=== PATIENT | male | born 1930 | race Caucasian/White ===

== ENCOUNTER 2017-01-15 09:19 | Outpatient (CLI) | payer MEDICARE ==
[2017-01-15 09:48] LABS: Hemoglobin A1c 8.6 % (4.0-6.0)
[2017-01-15 11:14] LABS: ALT (SGPT) 15 U/L (0-55); AST (SGOT) 16 U/L (5-34); Albumin 3.5 g/dL (3.4-4.8); Alkaline Phosphatase 112 U/L (40-150); Anion Gap 13 mmol/L (10-20); BUN (Urea Nitrogen) 17 mg/dL (8.4-25.7); Bilirubin, Direct 0.3 mg/dL (0.1-0.3); Bilirubin, Total 0.5 mg/dL (0.2-1.2); Calc. Creatinine Clearance 0 mL/min (70-130); Carbon Dioxide 25 mmol/L (23-31); Cardiac Risk 3.8 (Less than 4.5); Chloride 106 mmol/L (98-107); Cholesterol 117 mg/dL (< 200 Desired); Estimated GFR-MDRD 54; Glucose 101 mg/dL (83-110); HDL Cholesterol 31 mg/dL (>60 Neg Risk); LDL Cholesterol, Calculated 73 mg/dL; Potassium 4.3 mmol/L (3.5-5.1); Protein, Total 6.4 g/dL (5.8-8.1); Sodium 140 mmol/L (136-145); Triglycerides 63 mg/dL (Less than 150)
== END 2017-01-15 09:20 ==
LOC: MADLABBHPM 09:19
PROVIDERS: ATTEND Family Medicine
DX: E11.9 Type 2 diabetes mellitus without complications (principal); M10.9 Gout, unspecified
CPT/HCPCS: 36415; 80048; 80061; 80076; 83036; 84550

== ENCOUNTER 2017-04-19 09:34 | Outpatient (CLI) | payer MEDICARE ==
[2017-04-19 10:30] LABS: ALT (SGPT) 13 U/L (8-55); AST (SGOT) 14 U/L (5-34); Albumin 3.2 g/dL (3.4-4.8); Alkaline Phosphatase 101 U/L (40-150); Anion Gap 14 mmol/L (10-20); BUN (Urea Nitrogen) 16 mg/dL (8.4-25.7); Bilirubin, Direct 0.2 mg/dL (0.1-0.3); Bilirubin, Total 0.4 mg/dL (0.2-1.2); Calc. Creatinine Clearance 0 mL/min (70-130); Calcium 8.8 mg/dL (7.8-10.44); Carbon Dioxide 23 mmol/L (23-31); Cardiac Risk 4.3 (Less than 4.5); Chloride 101 mmol/L (98-107); Cholesterol 112 mg/dl (< 200 Desired); Estimated GFR-MDRD 54; Glucose 158 mg/dL (83-110); HDL Cholesterol 26 mg/dL (>60 Neg Risk); LDL Cholesterol, Calculated 72 mg/dL; Potassium 4.4 mmol/L (3.5-5.1); Protein, Total 7.5 g/dL (5.8-8.1); Sodium 134 mmol/L (136-145); Triglycerides 70 mg/dL (Less than 150)
== END 2017-04-19 09:35 ==
LOC: MADLABBHPM 09:34
PROVIDERS: ATTEND Family Medicine
DX: E11.9 Type 2 diabetes mellitus without complications (principal)
CPT/HCPCS: 36415; 80048; 80061; 80076; 83036

== ENCOUNTER 2017-07-05 10:23 | Outpatient (CLI) | payer MEDICARE ==
[2017-07-05 10:40] LABS: #Basophils 0.1 thou/uL (0.0-0.2); #Eosinphils 1.4 thou/uL (0.0-0.7); #Lymphocytes 2.4 thou/uL (1.20-3.40); #Neutrophils 7.6 thou/uL (1.40-6.50); %Basophils 0.7 % (0.0-1.0); %Eosinophils 11.2 % (0.0-10.0); %Lymphocytes 19.2 % (21.0-51.0); %Neutrophils 60.9 % (42.0-75.0); Mean Corpuscular HGB CONC 31.2 g/dL (32.0-36.0); Mean Corpuscular Hemoglobin 28.7 pg (27.0-31.0); Mean Platelet Volume 6.2 fL (7.4-10.4); Platelet Count 242 thou/uL (130-400); RBC Distribution Width 13.9 % (11.5-14.5); Red Blood Cell (RBC) Count 5.21 mill/uL (4.70-6.10); White Blood Cell (WBC) Count 12.4 thou/uL (4.8-10.8)
[2017-07-05 10:48] LABS: Hemoglobin A1c 8.4 % (4.0-6.0)
[2017-07-05 11:42] LABS: ALT (SGPT) 11 U/L (8-55); AST (SGOT) 15 U/L (5-34); Albumin 3.5 g/dL (3.4-4.8); Alkaline Phosphatase 123 U/L (40-150); Anion Gap 12 mmol/L (10-20); BUN (Urea Nitrogen) 17 mg/dL (8.4-25.7); Bilirubin, Direct 0.3 mg/dL (0.1-0.3); Bilirubin, Total 0.7 mg/dL (0.2-1.2); Calc. Creatinine Clearance 0 mL/min (70-130); Carbon Dioxide 25 mmol/L (23-31); Cardiac Risk 3.8 (Less than 4.5); Chloride 106 mmol/L (98-107); Cholesterol 114 mg/dl (< 200 Desired); Estimated GFR-MDRD 53; Glucose 107 mg/dL (83-110); HDL Cholesterol 30 mg/dL (>60 Neg Risk); LDL Cholesterol, Calculated 66 mg/dL; Potassium 4.1 mmol/L (3.5-5.1); Protein, Total 6.6 g/dL (5.8-8.1); Sodium 139 mmol/L (136-145); Triglycerides 89 mg/dL (Less than 150); Uric Acid 5.4 mg/dL (3.5-7.2)
== END 2017-07-05 10:24 | disposition home or self-care (01) ==
LOC: MADLABBHPM 10:23
PROVIDERS: ATTEND Family Medicine
DX: E11.9 Type 2 diabetes mellitus without complications (principal); M10.9 Gout, unspecified
CPT/HCPCS: 36415; 80048; 80061; 80076; 83036; 84550; 85025

== ENCOUNTER 2019-08-18 10:36 | Outpatient (CLI) | payer MEDICARE ==
[2019-08-18 11:08] LABS: ALT (SGPT) 13 U/L (8-55); AST (SGOT) 14 U/L (5-34); Albumin 3.2 g/dL (3.4-4.8); Alkaline Phosphatase 107 U/L (40-110); Anion Gap 14 mmol/L (10-20); BUN (Urea Nitrogen) 13 mg/dL (8.4-25.7); Bilirubin, Direct 0.2 mg/dL (0.1-0.3); Bilirubin, Total 0.5 mg/dL (0.2-1.2); Calc. Creatinine Clearance 0 mL/min (70-130); Calcium 8.3 mg/dL (7.8-10.44); Carbon Dioxide 24 mmol/L (23-31); Cardiac Risk 3.9 (Less than 4.5); Chloride 109 mmol/L (98-107); Cholesterol 104 mg/dl (< 200 Desired); Estimated GFR-MDRD 68; Glucose 87 mg/dL (83-110); HDL Cholesterol 27 mg/dL (>60 Neg Risk); LDL Cholesterol, Calculated 65 mg/dL; Potassium 3.9 mmol/L (3.5-5.1); Protein, Total 6.1 g/dL (5.8-8.1); Sodium 143 mmol/L (136-145); Triglycerides 59 mg/dL (Less than 150); Uric Acid 4.9 mg/dL (3.5-7.2)
[2019-08-18 11:19] LABS: #Basophils 0.1 thou/uL (0.0-0.2); #Eosinphils 0.7 thou/uL (0.0-0.7); #Lymphocytes 1.7 thou/uL (1.20-3.40); #Monocytes 0.6 thou/uL (0.11-0.59); #Neutrophils 4.8 thou/uL (1.40-6.50); %Basophils 1.1 % (0.0-1.0); %Eosinophils 8.7 % (0.0-10.0); %Lymphocytes 21.9 % (21.0-51.0); %Monocytes 7.5 % (0.0-10.0); %Neutrophils 60.9 % (42.0-75.0); Hemoglobin 13.8 g/dL (14.0-18.0); Manual Diff?? NO; Mean Corpuscular HGB CONC 29.6 g/dL (32.0-36.0); Mean Corpuscular Hemoglobin 28.4 pg (27.0-31.0); Mean Platelet Volume 6.2 fL (7.4-10.4); Platelet Count 271 thou/uL (130-400); RBC Distribution Width 13.5 % (11.5-14.5); Red Blood Cell (RBC) Count 4.85 mill/uL (4.70-6.10); White Blood Cell (WBC) Count 7.8 thou/uL (4.8-10.8)
[2019-08-18 11:20] LABS: MDiff Complete? YES
[2019-08-18 16:55] LABS: Hemoglobin A1c 7.7 % (4.0-6.0)
[2019-08-18 17:21] LABS: Creatinine, Urine 191.58 mg/dL (63-166); Microalbumin/Creat Ratio 26.1 mg/g (Less than 30)
== END 2019-08-18 10:37 | disposition home or self-care (01) ==
LOC: MADLABBHPM 10:36
PROVIDERS: ATTEND Family Medicine
DX: E11.22 Type 2 diabetes mellitus with diabetic chronic kidney disease (principal); N18.9 Chronic kidney disease, unspecified; E78.00 Pure hypercholesterolemia, unspecified; M10.9 Gout, unspecified
CPT/HCPCS: 36415; 80048; 80061; 80076; 82043; 83036; 84443; 84550; 85025

== ENCOUNTER 2021-01-20 15:38 | Outpatient (CLI) | payer MEDICARE ==
[2021-01-20 15:58] LABS: ALT (SGPT) 19 U/L (8-55); AST (SGOT) 19 U/L (5-34); Albumin 3.5 g/dL (3.4-4.8); Alkaline Phosphatase 112 U/L (40-110); Anion Gap 13 mmol/L (10-20); BUN (Urea Nitrogen) 20 mg/dL (8.4-25.7); Bilirubin, Total 0.5 mg/dL (0.2-1.2); Calc. Creatinine Clearance 0 mL/min (70-130); Calcium 8.6 mg/dL (7.8-10.44); Carbon Dioxide 27 mmol/L (23-31); Cardiac Risk 3.5 (Less than 4.5); Chloride 105 mmol/L (98-107); Cholesterol 115 mg/dl (< 200 Desired); Globulin 2.7 g/dL (2.4-3.5); Glucose 113 mg/dL (83-110); HDL Cholesterol 33 mg/dL (>60 Neg Risk); LDL Cholesterol, Calculated 69 mg/dL; Potassium 4.3 mmol/L (3.5-5.1); Protein, Total 6.2 g/dL (5.8-8.1); Sodium 141 mmol/L (136-145); Triglycerides 64 mg/dL (Less than 150)
== END 2021-01-20 15:39 | disposition home or self-care (01) ==
LOC: MADLAB 15:38
PROVIDERS: ATTEND Family Medicine
DX: I10 Essential (primary) hypertension (principal); E11.9 Type 2 diabetes mellitus without complications
CPT/HCPCS: 36415; 80053; 80061; 83036

== ENCOUNTER 2021-01-23 11:49 | Emergency (ER) | payer MEDICARE ==
[2021-01-23] MEDS ORDERED: Sodium Chloride 0.9% 1,000 ML ONE ×2 (12:36→13:46)
[2021-01-23 13:21] LABS: Band 5 % (5-11); Giant Platelets SLIGHT; Hemoglobin 15.5 g/dL (14.0-18.0); Large Platelets SLIGHT; Lymphocytes 2 % (21-51); MDiff Complete? YES; Mean Corpuscular HGB CONC 32.1 g/dL (32.0-36.0); Mean Corpuscular Hemoglobin 30.4 pg (27.0-31.0); Mean Corpuscular Volume 94.6 fL (78.0-98.0); Mean Platelet Volume 7.2 fL (7.4-10.4); Monocytes 2 % (0-10); Neutrophil 89 % (42-75); Platelet Count 200 thou/uL (130-400); Platelet Morphology Comment Appears Adequate; Poikilocytosis SLIGHT = 6-15 cells (100X) (0-5/hpf); RBC Distribution Width 13.4 % (11.5-14.5); Reactive Lymphocytes 2 % (0-10); Red Blood Cell (RBC) Count 5.09 mill/uL (4.70-6.10); White Blood Cell (WBC) Count 20.7 thou/uL (4.8-10.8)
[2021-01-23 13:27] LABS: ALT (SGPT) 23 U/L (8-55); AST (SGOT) 23 U/L (5-34); Albumin 3.7 g/dL (3.4-4.8); Alkaline Phosphatase 122 U/L (40-110); Anion Gap 17 mmol/L (10-20); BUN (Urea Nitrogen) 23 mg/dL (8.4-25.7); Bilirubin, Total 0.7 mg/dL (0.2-1.2); Calc. Creatinine Clearance 0 mL/min (70-130); Carbon Dioxide 22 mmol/L (23-31); Chloride 105 mmol/L (98-107); Globulin 2.8 g/dL (2.4-3.5); Glucose 209 mg/dL (83-110); Protein, Total 6.5 g/dL (5.8-8.1); Sodium 140 mmol/L (136-145)
[2021-01-23 13:35] LABS: PTT 33.8 sec (22.9-36.1); Prothrombin Time 12.9 sec (12.0-14.7)
[2021-01-23] MEDS ORDERED: Morphine 2 MG/ML VIAL ONE ×2 (13:46→14:56)
[2021-01-23] MEDS ORDERED: Cefepime 2 GM VIAL ONE (13:46)
[2021-01-23] MEDS ORDERED: Sodium Chloride 0.9% 100 ML ONE (13:46)
[2021-01-23 13:52] LABS: Bilirubin Negative (Negative); Blood, Urine Trace (Negative); Clarity Clear (Clear); Glucose, Urine (Dipstick) Negative (Negative); Ketone, Urine Negative (Negative); Leukocyte Negative (Negative); Nitrite Negative (Negative); Protein, Urine (Dipstick) Trace mg/dL (Neg-Trace); Specific Gravity, Urine 1.025 (1.005-1.030); Urobilinogen 0.2 mg/dL (Less than 2)
[2021-01-23 14:00] LABS: Bacteria/HPF Rare-Few HPF (None Seen); RBC/HPF 0-3 HPF (0-3); WBC/HPF 0-3 HPF (0-3)
[2021-01-23 14:15] LABS: CK (CPK) 101 U/L (30-200); CRP (Inflammatory) Less than 0.50 mg/dL (= or < 0.5)
== END 2021-01-23 15:04 | disposition short-term general hospital (02) ==
LOC: MADERS 11:49
DX: S72.012A Unspecified intracapsular fracture of left femur, initial encounter for closed fracture (principal); A41.9 Sepsis, unspecified organism; R65.20 Severe sepsis without septic shock; E11.9 Type 2 diabetes mellitus without complications; K21.9 Gastro-esophageal reflux disease without esophagitis; E78.5 Hyperlipidemia, unspecified; I10 Essential (primary) hypertension; Z87.891 Personal history of nicotine dependence; W18.30XA Fall on same level, unspecified, initial encounter
CPT/HCPCS: 27230; 70450; 71045; 72125; 73502 ×2; 73700; 80053; 82550; 83605; 84484; 85025; 85379; 85610; 85730; 86140; 87040; 87086; 93005; 94760; 96374; 96375; 99285; J2270; 81003; 81015; J0692; J3490; J7050

== ENCOUNTER 2021-01-28 14:56 | Inpatient (IN) | payer MEDICARE ==
[2021-01-28] MEDS ORDERED: Acetaminophen 325 MG TAB PO PRN (18:05)
[2021-01-28] MEDS ORDERED: Polyethylene Glycol 3350 17 GM Packet PO PRN (18:18)
[2021-01-28] MEDS: Acetaminophen 325 MG TAB PO PRN (19:25)
[2021-01-28] MEDS: Lisinopril 20 MG TAB PO SCH (20:53)
[2021-01-28] MEDS ORDERED: Lantus 1000 UNITS/10 ML VIAL SC SCH (21:00)
[2021-01-29] MEDS ORDERED: Acetaminophen ER (8hr) 650 MG TAB PO ONE (04:46)
[2021-01-29] MEDS: Acetaminophen 325 MG TAB PO PRN ×3 (04:50→17:44)
[2021-01-29 07:40] LABS: Hemoglobin 11.2 g/dL (14.0-18.0); Mean Corpuscular HGB CONC 32.2 g/dL (32.0-36.0); Mean Corpuscular Hemoglobin 30.6 pg (27.0-31.0); Platelet Count 132 thou/uL (130-400); Red Blood Cell (RBC) Count 3.68 mill/uL (4.70-6.10); White Blood Cell (WBC) Count 8.3 thou/uL (4.8-10.8)
[2021-01-29 07:41] LABS: #Basophils 0.1 thou/uL (0.0-0.2); #Eosinphils 0.5 thou/uL (0.0-0.7); #Lymphocytes 0.9 thou/uL (1.20-3.40); #Monocytes 0.6 thou/uL (0.11-0.59); #Neutrophils 6.1 thou/uL (1.40-6.50); %Basophils 0.7 % (0.0-1.0); %Eosinophils 6.5 % (0.0-10.0); %Lymphocytes 11.1 % (21.0-51.0); %Monocytes 7.6 % (0.0-10.0); %Neutrophils 74.1 % (42.0-75.0); Mean Platelet Volume 7.7 fL (7.4-10.4)
[2021-01-29 07:43] LABS: Albumin 2.5 g/dL (3.4-4.8); Alkaline Phosphatase 77 U/L (40-110); Anion Gap 14 mmol/L (10-20); BUN (Urea Nitrogen) 22 mg/dL (8.4-25.7); Bilirubin, Total 1.1 mg/dL (0.2-1.2); Calc. Creatinine Clearance 58 mL/min (70-130); Calcium 7.7 mg/dL (7.8-10.44); Carbon Dioxide 26 mmol/L (23-31); Chloride 103 mmol/L (98-107); Globulin 2.3 g/dL (2.4-3.5); Glucose 309 mg/dL (83-110); Potassium 4.2 mmol/L (3.5-5.1); Protein, Total 4.8 g/dL (5.8-8.1); Sodium 139 mmol/L (136-145)
[2021-01-29 07:44] LABS: ALT (SGPT) 18 U/L (8-55); AST (SGOT) 18 U/L (5-34)
[2021-01-29] MEDS: HumaLOG 300 UNITS/3 ML VIAL SC SCH ×2 (08:06→17:18)
[2021-01-29] MEDS: Enoxaparin Sodium 40 MG/0.4 ML SYRINGE SC SCH (08:08)
[2021-01-29] MEDS: Aspirin 81 mg Enteric Coated Tablet PO SCH (08:09)
[2021-01-29] MEDS: Amlodipine 5 MG TAB PO SCH (08:09)
[2021-01-29] MEDS: Lisinopril 20 MG TAB PO SCH ×2 (08:09→20:28)
[2021-01-29] MEDS: Atorvastatin Calcium 10 MG TAB PO SCH (08:10)
[2021-01-29] MEDS: Lantus 1000 UNITS/10 ML VIAL SC SCH ×2 (08:18→20:51)
[2021-01-29] MEDS ORDERED: Acetaminophen 325 MG TAB PO PRN (17:23)
[2021-01-30] MEDS: Acetaminophen 325 MG TAB PO PRN ×4 (01:53→20:51)
[2021-01-30] MEDS: Enoxaparin Sodium 40 MG/0.4 ML SYRINGE SC SCH (08:01)
[2021-01-30] MEDS: Atorvastatin Calcium 10 MG TAB PO SCH (08:01)
[2021-01-30] MEDS: Aspirin 81 mg Enteric Coated Tablet PO SCH (08:01)
[2021-01-30] MEDS: Amlodipine 5 MG TAB PO SCH (08:01)
[2021-01-30] MEDS: Lisinopril 20 MG TAB PO SCH ×2 (08:02→20:51)
[2021-01-30] MEDS: Lantus 1000 UNITS/10 ML VIAL SC SCH ×2 (08:03→20:50)
[2021-01-30] MEDS: HumaLOG 300 UNITS/3 ML VIAL SC SCH ×2 (08:07→16:42)
[2021-01-31] MEDS: Acetaminophen 325 MG TAB PO PRN ×4 (05:56→21:41)
[2021-01-31] MEDS: Aspirin 81 mg Enteric Coated Tablet PO SCH (08:20)
[2021-01-31] MEDS: Amlodipine 5 MG TAB PO SCH (08:21)
[2021-01-31] MEDS: Lisinopril 20 MG TAB PO SCH ×2 (08:21→21:40)
[2021-01-31] MEDS: HumaLOG 300 UNITS/3 ML VIAL SC SCH ×2 (08:22→16:53)
[2021-01-31] MEDS: Lantus 1000 UNITS/10 ML VIAL SC SCH ×2 (08:22→21:42)
[2021-01-31] MEDS: Enoxaparin Sodium 40 MG/0.4 ML SYRINGE SC SCH (08:22)
[2021-01-31] MEDS: Atorvastatin Calcium 10 MG TAB PO SCH (08:25)
[2021-02-01] MEDS: Acetaminophen 325 MG TAB PO PRN ×4 (02:52→16:56)
[2021-02-01] MEDS: Lisinopril 20 MG TAB PO SCH ×2 (08:17→20:59)
[2021-02-01] MEDS: Atorvastatin Calcium 10 MG TAB PO SCH (08:17)
[2021-02-01] MEDS: Aspirin 81 mg Enteric Coated Tablet PO SCH (08:17)
[2021-02-01] MEDS: Amlodipine 5 MG TAB PO SCH (08:17)
[2021-02-01] MEDS: Enoxaparin Sodium 40 MG/0.4 ML SYRINGE SC SCH (08:18)
[2021-02-01] MEDS: HumaLOG 300 UNITS/3 ML VIAL SC SCH ×2 (08:18→16:56)
[2021-02-01] MEDS: Lantus 1000 UNITS/10 ML VIAL SC SCH ×2 (08:19→20:59)
[2021-02-01] MEDS: traMADol HCl 50 MG TAB PO PRN (21:00)
[2021-02-01] MEDS: Cyclobenzaprine 10 MG TAB PO PRN (23:28)
[2021-02-02] MEDS: Atorvastatin Calcium 10 MG TAB PO SCH (09:00)
[2021-02-02] MEDS: Lisinopril 20 MG TAB PO SCH ×2 (09:00→21:17)
[2021-02-02] MEDS: Aspirin 81 mg Enteric Coated Tablet PO SCH (09:00)
[2021-02-02] MEDS: Lantus 1000 UNITS/10 ML VIAL SC SCH ×2 (09:00→21:17)
[2021-02-02] MEDS: Amlodipine 5 MG TAB PO SCH (09:00)
[2021-02-02] MEDS: HumaLOG 300 UNITS/3 ML VIAL SC SCH ×2 (09:00→16:55)
[2021-02-02] MEDS: Enoxaparin Sodium 40 MG/0.4 ML SYRINGE SC SCH (09:00)
[2021-02-02] MEDS: Cyclobenzaprine 10 MG TAB PO PRN ×2 (09:13→16:55)
[2021-02-02] MEDS: traMADol HCl 50 MG TAB PO PRN (15:41)
[2021-02-03] MEDS: Colchicine 0.6 MG TAB PO PRN ×2 (03:10→16:56)
[2021-02-03] MEDS: Amlodipine 5 MG TAB PO SCH (08:12)
[2021-02-03] MEDS: Aspirin 81 mg Enteric Coated Tablet PO SCH (08:12)
[2021-02-03] MEDS: Cyclobenzaprine 10 MG TAB PO PRN ×2 (08:12→16:56)
[2021-02-03] MEDS: Atorvastatin Calcium 10 MG TAB PO SCH (08:12)
[2021-02-03] MEDS: Lisinopril 20 MG TAB PO SCH ×2 (08:12→20:48)
[2021-02-03] MEDS: Lantus 1000 UNITS/10 ML VIAL SC SCH (08:13)
[2021-02-03] MEDS: Enoxaparin Sodium 40 MG/0.4 ML SYRINGE SC SCH (08:13)
[2021-02-03] MEDS: HumaLOG 300 UNITS/3 ML VIAL SC SCH ×2 (08:14→16:56)
[2021-02-03] MEDS: Cholecalciferol 1,000 UNITS (25 MCG) TAB PO SCH (08:41)
[2021-02-03] MEDS ORDERED: Lantus 1000 UNITS/10 ML VIAL SC SCH (21:00)
[2021-02-04] MEDS: traMADol HCl 50 MG TAB PO PRN (00:37)
[2021-02-04] MEDS: Cyclobenzaprine 10 MG TAB PO PRN (02:48)
[2021-02-04 05:41] LABS: Bilirubin Negative (Negative); Blood, Urine Moderate (Negative); Clarity Clear (Clear); Glucose, Urine (Dipstick) 500 mg/dL (Negative); Ketone, Urine Negative (Negative); Leukocyte Negative (Negative); Nitrite Negative (Negative); Protein, Urine (Dipstick) Trace mg/dL (Neg-Trace); pH, Urine 6.5 (5.0-9.0)
[2021-02-04 05:49] LABS: Bacteria/HPF Rare-Few HPF (None Seen); Squamous Epithelial 0-3 HPF (0-3); WBC/HPF 0-3 HPF (0-3)
[2021-02-04] MEDS: Aspirin 81 mg Enteric Coated Tablet PO SCH (08:09)
[2021-02-04] MEDS: Lisinopril 20 MG TAB PO SCH ×2 (08:10→21:24)
[2021-02-04] MEDS: Cholecalciferol 1,000 UNITS (25 MCG) TAB PO SCH (08:10)
[2021-02-04] MEDS: Amlodipine 5 MG TAB PO SCH (08:10)
[2021-02-04] MEDS: HumaLOG 300 UNITS/3 ML VIAL SC SCH ×2 (08:11→18:09)
[2021-02-04] MEDS: Enoxaparin Sodium 40 MG/0.4 ML SYRINGE SC SCH (08:11)
[2021-02-04] MEDS: Lantus 1000 UNITS/10 ML VIAL SC SCH ×2 (08:12→21:27)
[2021-02-04] MEDS: Atorvastatin Calcium 10 MG TAB PO SCH (08:15)
[2021-02-04] MEDS: Colchicine 0.6 MG TAB PO PRN (08:19)
[2021-02-05] MEDS: Lisinopril 20 MG TAB PO SCH ×2 (07:59→20:42)
[2021-02-05] MEDS: Atorvastatin Calcium 10 MG TAB PO SCH (07:59)
[2021-02-05] MEDS: Aspirin 81 mg Enteric Coated Tablet PO SCH (07:59)
[2021-02-05] MEDS: Cholecalciferol 1,000 UNITS (25 MCG) TAB PO SCH (07:59)
[2021-02-05] MEDS: Lantus 1000 UNITS/10 ML VIAL SC SCH ×2 (08:01→20:46)
[2021-02-05] MEDS: HumaLOG 300 UNITS/3 ML VIAL SC SCH ×2 (08:01→18:12)
[2021-02-05] MEDS: Amlodipine 5 MG TAB PO SCH (08:05)
[2021-02-05] MEDS: Colchicine 0.6 MG TAB PO PRN (08:05)
[2021-02-05] MEDS: Enoxaparin Sodium 40 MG/0.4 ML SYRINGE SC SCH (08:05)
[2021-02-05] MEDS: Cyclobenzaprine 10 MG TAB PO PRN (20:46)
[2021-02-06] MEDS: Atorvastatin Calcium 10 MG TAB PO SCH (08:26)
[2021-02-06] MEDS: Lisinopril 20 MG TAB PO SCH ×2 (08:26→20:37)
[2021-02-06] MEDS: Cholecalciferol 1,000 UNITS (25 MCG) TAB PO SCH (08:26)
[2021-02-06] MEDS: Aspirin 81 mg Enteric Coated Tablet PO SCH (08:26)
[2021-02-06] MEDS: Amlodipine 5 MG TAB PO SCH (08:26)
[2021-02-06] MEDS: Enoxaparin Sodium 40 MG/0.4 ML SYRINGE SC SCH (08:26)
[2021-02-06] MEDS: Lantus 1000 UNITS/10 ML VIAL SC SCH ×2 (08:32→20:35)
[2021-02-06] MEDS: traMADol HCl 50 MG TAB PO PRN ×2 (11:23→20:34)
[2021-02-06] MEDS: HumaLOG 300 UNITS/3 ML VIAL SC SCH ×3 (14:47→17:26)
[2021-02-07] MEDS: HumaLOG 300 UNITS/3 ML VIAL SC SCH ×2 (08:39→16:45)
[2021-02-07] MEDS: Lantus 1000 UNITS/10 ML VIAL SC SCH ×2 (08:39→20:43)
[2021-02-07] MEDS: Atorvastatin Calcium 10 MG TAB PO SCH (08:40)
[2021-02-07] MEDS: Lisinopril 20 MG TAB PO SCH ×2 (08:40→20:37)
[2021-02-07] MEDS: Amlodipine 5 MG TAB PO SCH (08:40)
[2021-02-07] MEDS: Aspirin 81 mg Enteric Coated Tablet PO SCH (08:40)
[2021-02-07] MEDS: Enoxaparin Sodium 40 MG/0.4 ML SYRINGE SC SCH (08:40)
[2021-02-07] MEDS: Cholecalciferol 1,000 UNITS (25 MCG) TAB PO SCH (08:40)
[2021-02-07] MEDS: traMADol HCl 50 MG TAB PO PRN (20:38)
[2021-02-08] MEDS: HumaLOG 300 UNITS/3 ML VIAL SC SCH ×2 (07:27→17:19)
[2021-02-08] MEDS: Lisinopril 20 MG TAB PO SCH ×2 (08:26→20:18)
[2021-02-08] MEDS: Aspirin 81 mg Enteric Coated Tablet PO SCH (08:26)
[2021-02-08] MEDS: Atorvastatin Calcium 10 MG TAB PO SCH (08:26)
[2021-02-08] MEDS: Amlodipine 5 MG TAB PO SCH (08:27)
[2021-02-08] MEDS: Cholecalciferol 1,000 UNITS (25 MCG) TAB PO SCH (08:27)
[2021-02-08] MEDS: Enoxaparin Sodium 40 MG/0.4 ML SYRINGE SC SCH (08:27)
[2021-02-08] MEDS: Lantus 1000 UNITS/10 ML VIAL SC SCH ×2 (08:28→20:19)
[2021-02-08] MEDS: traMADol HCl 50 MG TAB PO PRN (20:17)
[2021-02-09] MEDS: HumaLOG 300 UNITS/3 ML VIAL SC SCH ×2 (08:22→17:12)
[2021-02-09] MEDS: Lisinopril 20 MG TAB PO SCH ×2 (08:50→20:20)
[2021-02-09] MEDS: Enoxaparin Sodium 40 MG/0.4 ML SYRINGE SC SCH (08:50)
[2021-02-09] MEDS: Aspirin 81 mg Enteric Coated Tablet PO SCH (08:50)
[2021-02-09] MEDS: Atorvastatin Calcium 10 MG TAB PO SCH (08:50)
[2021-02-09] MEDS: Cholecalciferol 1,000 UNITS (25 MCG) TAB PO SCH (08:50)
[2021-02-09] MEDS: Amlodipine 5 MG TAB PO SCH (08:51)
[2021-02-09] MEDS: Acetaminophen 325 MG TAB PO PRN ×2 (08:59→17:12)
[2021-02-09] MEDS: Lantus 1000 UNITS/10 ML VIAL SC SCH ×2 (09:06→20:22)
[2021-02-09] MEDS: traMADol HCl 50 MG TAB PO PRN (20:19)
[2021-02-10] MEDS: HumaLOG 300 UNITS/3 ML VIAL SC SCH ×2 (07:57→17:05)
[2021-02-10] MEDS: Enoxaparin Sodium 40 MG/0.4 ML SYRINGE SC SCH (08:37)
[2021-02-10] MEDS: Amlodipine 5 MG TAB PO SCH (08:37)
[2021-02-10] MEDS: Cholecalciferol 1,000 UNITS (25 MCG) TAB PO SCH (08:38)
[2021-02-10] MEDS: Acetaminophen 325 MG TAB PO PRN (08:38)
[2021-02-10] MEDS: Lisinopril 20 MG TAB PO SCH ×2 (08:38→20:20)
[2021-02-10] MEDS: Aspirin 81 mg Enteric Coated Tablet PO SCH (08:38)
[2021-02-10] MEDS: Atorvastatin Calcium 10 MG TAB PO SCH (08:38)
[2021-02-10] MEDS: Lantus 1000 UNITS/10 ML VIAL SC SCH ×2 (08:43→20:23)
[2021-02-10] MEDS: traMADol HCl 50 MG TAB PO PRN (20:20)
[2021-02-11] MEDS: HumaLOG 300 UNITS/3 ML VIAL SC SCH ×2 (08:13→17:01)
[2021-02-11] MEDS: Enoxaparin Sodium 40 MG/0.4 ML SYRINGE SC SCH (08:17)
[2021-02-11] MEDS: Atorvastatin Calcium 10 MG TAB PO SCH (08:18)
[2021-02-11] MEDS: Lisinopril 20 MG TAB PO SCH ×2 (08:18→20:53)
[2021-02-11] MEDS: Acetaminophen 325 MG TAB PO PRN (08:19)
[2021-02-11] MEDS: Aspirin 81 mg Enteric Coated Tablet PO SCH (08:20)
[2021-02-11] MEDS: Amlodipine 5 MG TAB PO SCH (08:20)
[2021-02-11] MEDS: Cholecalciferol 1,000 UNITS (25 MCG) TAB PO SCH (08:21)
[2021-02-11] MEDS: Lantus 1000 UNITS/10 ML VIAL SC SCH ×2 (08:29→20:52)
[2021-02-11 21:54] VITALS: BMI 26.4
[2021-02-12] MEDS: Cyclobenzaprine 10 MG TAB PO PRN (01:43)
[2021-02-12] MEDS: Acetaminophen 325 MG TAB PO PRN (01:44)
[2021-02-12] MEDS: Lisinopril 20 MG TAB PO SCH ×2 (08:24→20:25)
[2021-02-12] MEDS: Cholecalciferol 1,000 UNITS (25 MCG) TAB PO SCH (08:24)
[2021-02-12] MEDS: Amlodipine 5 MG TAB PO SCH (08:24)
[2021-02-12] MEDS: Enoxaparin Sodium 40 MG/0.4 ML SYRINGE SC SCH (08:24)
[2021-02-12] MEDS: Aspirin 81 mg Enteric Coated Tablet PO SCH (08:24)
[2021-02-12] MEDS: Atorvastatin Calcium 10 MG TAB PO SCH (08:24)
[2021-02-12] MEDS: Lantus 1000 UNITS/10 ML VIAL SC SCH ×2 (08:25→20:27)
[2021-02-12] MEDS: HumaLOG 300 UNITS/3 ML VIAL SC SCH ×2 (08:26→17:21)
[2021-02-12] MEDS: traMADol HCl 50 MG TAB PO PRN (20:25)
[2021-02-13] MEDS: Cholecalciferol 1,000 UNITS (25 MCG) TAB PO SCH (08:22)
[2021-02-13] MEDS: Atorvastatin Calcium 10 MG TAB PO SCH (08:22)
[2021-02-13] MEDS: Lisinopril 20 MG TAB PO SCH (08:22)
[2021-02-13] MEDS: Amlodipine 5 MG TAB PO SCH (08:22)
[2021-02-13] MEDS: Aspirin 81 mg Enteric Coated Tablet PO SCH (08:22)
[2021-02-13] MEDS: Lantus 1000 UNITS/10 ML VIAL SC SCH (08:23)
[2021-02-13] MEDS: Enoxaparin Sodium 40 MG/0.4 ML SYRINGE SC SCH (08:23)
[2021-02-13] MEDS: HumaLOG 300 UNITS/3 ML VIAL SC SCH ×2 (08:23→15:50)
[2021-02-13 17:07] VITALS: BP 114/66; TEMP 98.4
== END 2021-02-13 17:18 | disposition home health service (06) | DRG 559 ==
LOC: UNDOADMIN 15:25 → MADMS 15:25
PROVIDERS: ADMIT Family Medicine; ATTEND Family Medicine
DX: Z47.1 Aftercare following joint replacement surgery (principal); I21.4 Non-ST elevation (NSTEMI) myocardial infarction; R53.1 Weakness; R26.9 Unspecified abnormalities of gait and mobility; I12.9 Hypertensive chronic kidney disease with stage 1 through stage 4 chronic kidney disease, or unspecified chronic kidney disease; J44.9 Chronic obstructive pulmonary disease, unspecified; E11.22 Type 2 diabetes mellitus with diabetic chronic kidney disease; E78.5 Hyperlipidemia, unspecified; N18.9 Chronic kidney disease, unspecified; K59.00 Constipation, unspecified; F17.210 Nicotine dependence, cigarettes, uncomplicated; R33.9 Retention of urine, unspecified; J61 Pneumoconiosis due to asbestos and other mineral fibers; W19.XXXD Unspecified fall, subsequent encounter; Z79.82 Long term (current) use of aspirin; Z79.4 Long term (current) use of insulin; Z79.899 Other long term (current) drug therapy; Z88.0 Allergy status to penicillin; Z88.8 Allergy status to other drugs, medicaments and biological substances; S50.12XD Contusion of left forearm, subsequent encounter
CPT/HCPCS: 36416; 80053; 81001; 85025; 94640; J1650; J1815; J7620